=== PATIENT | female | born 1980 | race Caucasian/White ===

== ENCOUNTER 2017-01-11 19:07 | Emergency (ER) | payer OTHER ==
[~2017-01-11] VITALS: Ht 149.9 cm; Wt 107.2 kg
[~2017-01-11 19:07] MED LIST: ASPI-COR81 M1 PO; HUMALOG100 U/ML; INSULIN; LAC PO; LEV250 PO; LISINOPRIL; LISINOPRIL1 POW PO; LISINOPRIL2.5 MG PO; OMEPRAZOLE MAGN20 MG PO; PANTOPRAZOLE SO40 M1 PO; SIMVASTATIN10 M1; SIMVASTATIN20 MG PO
[2017-01-11 20:48] LABS: BASOPHIL % 0.5 % (0-2)
[2017-01-11 21:03] LABS: PLATELET COUNT 465 x10^3mcL (130-400); RED CELL DISTRIBUTION WIDTH 17.5 % (11.5-14.5)
[2017-01-11 21:05] LABS: ALBUMIN 3.5 g/dL (3.4-5.0); ALKALINE PHOSPHATASE 97 U/L (46-116); ALT/SGPT 21 U/L (14-59); AST/SGOT 13 U/L (15-37); BILIRUBIN TOTAL 0.33 mg/dL (0.20-1.00); CALCIUM 9.1 mg/dL (8.5-10.1); CARBON DIOXIDE 32.7 mmol/L (21-32); CHLORIDE SERUM 103 mmol/L (98-107); CREATININE SERUM 0.8 mg/dL (0.6-1.0); GFR1 > 60 mL/min; POTASSIUM SERUM 3.6 mmol/L (3.5-5.1); SODIUM SERUM 143 mmol/L (136-145); TOTAL PROTEIN, SERUM 8.2 g/dL (6.4-8.2)
[2017-01-11 21:08] LABS: GLUCOSE SERUM 38 mg/dL (74-106)
[2017-01-11 23:37] VITALS: BP 130/74
== END 2017-01-11 23:37 | disposition home or self-care (01) ==
LOC: ED 19:07
PROVIDERS: Emergency Medicine
DX: R07.89 Other chest pain (principal); R10.13 Epigastric pain; E11.9 Type 2 diabetes mellitus without complications; Z79.4 Long term (current) use of insulin
CPT/HCPCS: 36415; 83880; J7030; J7040; Q0162

== ENCOUNTER 2017-07-23 19:49 | Emergency (ER) | payer OTHER ==
[~2017-07-23] VITALS: Ht 149.9 cm; Wt 112.0 kg
[2017-07-23 20:11] VITALS: Ht 149.9 cm; Wt 112.0 kg
[2017-07-24 03:15] VITALS: BP 120/70
== END 2017-07-24 03:29 | disposition home or self-care (01) ==
LOC: ED 19:49
DX: M54.5 Low back pain (principal); R10.9 Unspecified abdominal pain; E11.9 Type 2 diabetes mellitus without complications; K21.9 Gastro-esophageal reflux disease without esophagitis; K90.0 Celiac disease; Z88.0 Allergy status to penicillin; Z88.1 Allergy status to other antibiotic agents
CPT/HCPCS: J1885

== ENCOUNTER 2017-08-26 09:50 | Emergency (ER) | payer OTHER ==
[~2017-08-26] VITALS: Ht 149.9 cm; Wt 107.7 kg
[2017-08-26 10:03] VITALS: Ht 149.9 cm; Wt 107.7 kg
[2017-08-26 12:08] VITALS: BP 124/48
== END 2017-08-26 12:08 | disposition home or self-care (01) ==
LOC: ED 09:50
DX: J11.1 Influenza due to unidentified influenza virus with other respiratory manifestations (principal); E11.9 Type 2 diabetes mellitus without complications; R11.2 Nausea with vomiting, unspecified; H92.03 Otalgia, bilateral; J02.9 Acute pharyngitis, unspecified; K21.9 Gastro-esophageal reflux disease without esophagitis; Z88.0 Allergy status to penicillin; Z88.1 Allergy status to other antibiotic agents; Z88.2 Allergy status to sulfonamides
CPT/HCPCS: 87804; Q0092; Q0162

== ENCOUNTER 2017-10-31 17:08 | Emergency (ER) | payer OTHER ==
[~2017-10-31] VITALS: Ht 149.9 cm; Wt 112.0 kg
[2017-10-31 17:14] VITALS: Ht 149.9 cm; Wt 112.0 kg
[2017-10-31 17:52] VITALS: BP 141/82
== END 2017-10-31 17:52 | disposition home or self-care (01) ==
LOC: ED 17:08
DX: S86.811A Strain of other muscle(s) and tendon(s) at lower leg level, right leg, initial encounter (principal); Y93.89 Activity, other specified; X58.XXXA Exposure to other specified factors, initial encounter; Y92.89 Other specified places as the place of occurrence of the external cause; Y99.8 Other external cause status; Z88.0 Allergy status to penicillin; Z88.1 Allergy status to other antibiotic agents; Z88.2 Allergy status to sulfonamides; E11.9 Type 2 diabetes mellitus without complications